=== PATIENT | male | born 1975 | race African-American/Black ===

== ENCOUNTER 2025-07-03 05:59 | Inpatient (IN) | payer MEDICAID, OTHER ==
[~2025-07-03] VITALS: Ht 170.2 cm; Wt 80.8 kg
[~2025-07-03 05:59] MED LIST: KEPP500 PO; METH-372 MT
[2025-07-03 06:17] VITALS: O2SAT 97
[2025-07-03] MEDS: MORPHINE SULFATE 4 MG/ML INJ (FOR IV/IM USE) IV ONE (06:54)
[2025-07-03] MEDS: ONDANSETRON HCL 4MG/2ML INJ IV ONE (06:54)
[2025-07-03] MEDS ORDERED: LEVOFLOXACIN 500MG PREMIX 100 ML IV ONE (07:30)
[2025-07-03 07:45] LABS: BASOPHILS % 0.2 % (0.0-2.0); EOSINOPHILS % 0.1 % (0.0-5.0); HEMATOCRIT. 48.9 % (42.0-52.0); HEMOGLOBIN. 16.3 g/dL (14.0-18.0); LYMPHOCYTES % 8.5 % (20.0-50.0); MEAN PLATELET VOLUME 9.3 fl (7.4-10.4); MONOCYTES % 10.1 % (2.0-8.0); NEUTROPHILS % 81.1 % (40.0-76.0); PLATELET 284 x1000/uL (130-400); RED BLOOD CELL COUNT 5.12 mill/uL (4.7-6.1); RED CELL DISTRIBUTION WIDTH 12.0 % (11.6-14.6)
[2025-07-03] MEDS: METRONIDAZOLE 500 MG PREMIX 100 ML IV ONE (07:54)
[2025-07-03 08:04] LABS: CREATININE 0.7 mg/dL (0.6-1.3); UREA NITROGEN BLOOD 12 mg/dL (9-23)
[2025-07-03 08:06] LABS: ASPARTATE AMINOTRANSFERASE 16 IU/L (<34); BILIRUBIN DIRECT 0.4 mg/dL (<=3.0); BILIRUBIN TOTAL 1.1 mg/dL (0.1-1.0); PROTEIN TOTAL 8.3 g/dL (6.0-8.3)
[2025-07-03 08:12] LABS: TROPONIN I HIGH SENSITIVITY 4 ng/L (3.0-53)
[2025-07-03] MEDS ORDERED: MORPHINE SULFATE 4 MG/ML INJ (FOR IV/IM USE) IV ONE (08:15)
[2025-07-03] MEDS ORDERED: SODIUM CHLORIDE 0.9% 1,000 ML IV ONE (08:15)
[2025-07-03] MEDS ORDERED: CLONIDINE 0.1MG TABLET PO PRN (08:45)
[2025-07-03] MEDS ORDERED: ONDANSETRON HCL 4MG/2ML INJ IV PRN (08:45)
[2025-07-03] MEDS ORDERED: IPRATROPIUM/ALBUTEROL 0.5-3(2.5)MG/3ML NEB HHN PRN (08:45)
[2025-07-03] MEDS ORDERED: LORAZEPAM 0.5MG TABLET PO PRN (08:45)
[2025-07-03] MEDS: METHIMAZOLE 5MG TABLET PO SCH (09:00)
[2025-07-03] MEDS: LEVETIRACETAM 500MG TABLET PO SCH (09:00)
[2025-07-03 09:30] VITALS: BP 118/81; PULSE 91; RESP 18; TEMP 36.3; O2SAT 98
[2025-07-03] MEDS ORDERED: METRONIDAZOLE 250 MG PREMIX 50 ML IV SCH (09:30)
[2025-07-03 09:42] LABS: TROPONIN I HIGH SENSITIVITY 5 ng/L (3.0-53)
[2025-07-03] MEDS ORDERED: NALOXONE HCL 0.4MG/ML VIAL IV PRN (09:45)
[2025-07-03] MEDS ORDERED: METRONIDAZOLE 500 MG PREMIX 100 ML IV SCH (10:00)
[2025-07-03 11:00] VITALS: BP 118/81; PULSE 91; RESP 18; TEMP 36.5848
[2025-07-03] MEDS: SODIUM CHLORIDE 0.9% 1,000 ML IV SCH (11:08)
[2025-07-03] MEDS: HYDROCODONE/ACETAMINOPHEN 5/325MG TABLET PO PRN (11:20)
[2025-07-03] MEDS: DOCUSATE SODIUM 250MG CAPSULE PO NR (11:23)
[2025-07-03] MEDS: ENOXAPARIN 30MG/0.3ML SYR SUBCUT SCH (11:24)
[2025-07-03] MEDS: PANTOPRAZOLE SODIUM 40 MG/VIAL IV SCH (11:26)
[2025-07-03 12:00] VITALS: BP 132/62; PULSE 91; RESP 18; TEMP 36.5; O2SAT 96
[2025-07-03] MEDS: PIPERACILLIN/TAZO 3.375G/50ML 50 ML IV SCH (13:18)
[2025-07-03 16:00] VITALS: BP 118/75; PULSE 91; RESP 18; TEMP 36.6; O2SAT 98
[2025-07-03] MEDS: METRONIDAZOLE 500 MG PREMIX 100 ML IV SCH (17:36)
[2025-07-03 20:00] VITALS: BP 130/84; PULSE 98; RESP 20; TEMP 36.3; O2SAT 97
[2025-07-03] MEDS ORDERED: IOHEXOL-300 100 ML BOTTLE ONE (23:35)
[2025-07-04] VITALS: BP 116/78; PULSE 87; RESP 21; TEMP 36.1; O2SAT 99
[2025-07-04 04:00] VITALS: BP 114/75; PULSE 89; RESP 20; TEMP 36.1; O2SAT 97
[2025-07-04] MEDS: MORPHINE SULFATE 4 MG/ML INJ (FOR IV/IM USE) IV PRN (07:06)
[2025-07-04 08:00] VITALS: BP 134/84; PULSE 108; RESP 19; TEMP 36.4; O2SAT 96
[2025-07-04 08:14] LABS: BASOPHILS % 0.2 % (0.0-2.0); EOSINOPHILS % 0.3 % (0.0-5.0); HEMATOCRIT. 45.7 % (42.0-52.0); HEMOGLOBIN. 15.2 g/dL (14.0-18.0); LYMPHOCYTES % 11.2 % (20.0-50.0); MEAN PLATELET VOLUME 9.2 fl (7.4-10.4); MONOCYTES % 11.8 % (2.0-8.0); NEUTROPHILS % 76.5 % (40.0-76.0); PLATELET 289 x1000/uL (130-400); RED BLOOD CELL COUNT 4.83 mill/uL (4.7-6.1); RED CELL DISTRIBUTION WIDTH 12.4 % (11.6-14.6)
[2025-07-04 08:25] LABS: CREATININE 0.6 mg/dL (0.6-1.3)
[2025-07-04 08:26] LABS: TRIGLYCERIDE 81 mg/dL (0-150); UREA NITROGEN BLOOD 12 mg/dL (9-23)
[2025-07-04 08:27] LABS: LDL CHOLESTEROL 97 mg/dL (5-100)
[2025-07-04 08:28] LABS: PHOSPHORUS 2.5 mg/dL (2.5-4.9)
[2025-07-04 08:32] LABS: T4 FREE 1.55 ng/dL (0.89-1.76)
[2025-07-04 12:00] VITALS: BP 131/84; PULSE 105; RESP 19; TEMP 36.8; O2SAT 100
[2025-07-04] MEDS ORDERED: NON FORMULARY MED XX SCH (12:15)
[2025-07-04] MEDS: IRON SUCROSE COMPLEX 100 MG/5 ML ML IV SCH (13:42)
[2025-07-04 16:00] VITALS: BP 128/85; PULSE 105; RESP 15; TEMP 36.8; O2SAT 97
[2025-07-04 20:00] VITALS: BP 133/90; PULSE 99; RESP 19; TEMP 36.3; O2SAT 97
[2025-07-05] VITALS: BP 132/83; PULSE 95; RESP 20; TEMP 36.9; O2SAT 99
[2025-07-05 04:00] VITALS: BP 125/80; PULSE 94; RESP 20; TEMP 36.9; O2SAT 95
[2025-07-05] MEDS: ACETAMINOPHEN 325MG TABLET PO PRN ×2 (05:49→21:23)
[2025-07-05 06:02] LABS: BASOPHILS % 0.1 % (0.0-2.0); EOSINOPHILS % 0.1 % (0.0-5.0); HEMATOCRIT. 44.3 % (42.0-52.0); HEMOGLOBIN. 14.9 g/dL (14.0-18.0); LYMPHOCYTES % 8.3 % (20.0-50.0); MEAN PLATELET VOLUME 8.7 fl (7.4-10.4); MONOCYTES % 11.9 % (2.0-8.0); NEUTROPHILS % 79.6 % (40.0-76.0); PLATELET 293 x1000/uL (130-400); RED BLOOD CELL COUNT 4.72 mill/uL (4.7-6.1); RED CELL DISTRIBUTION WIDTH 12.1 % (11.6-14.6)
[2025-07-05 06:17] LABS: CREATININE 0.6 mg/dL (0.6-1.3); UREA NITROGEN BLOOD 9 mg/dL (9-23)
[2025-07-05 06:19] LABS: PHOSPHORUS 2.4 mg/dL (2.5-4.9)
[2025-07-05 08:00] VITALS: BP 126/76; PULSE 97; RESP 18; TEMP 36.6; O2SAT 95
[2025-07-05 12:00] VITALS: BP 120/64; PULSE 62; RESP 18; TEMP 36; O2SAT 98
[2025-07-05 16:00] VITALS: BP 130/79; PULSE 98; RESP 18; TEMP 36.7; O2SAT 96
[2025-07-05 20:00] VITALS: BP 127/79; PULSE 96; RESP 18; TEMP 36.7; O2SAT 98
[2025-07-06] VITALS: BP 124/78; PULSE 83; RESP 20; TEMP 36.6; O2SAT 96
[2025-07-06 04:00] VITALS: BP 134/80; PULSE 90; RESP 18; TEMP 36.6; O2SAT 96
[2025-07-06 07:51] LABS: HEMATOCRIT. 42.6 % (42.0-52.0); HEMOGLOBIN. 14.4 g/dL (14.0-18.0); MEAN PLATELET VOLUME 8.9 fl (7.4-10.4); PLATELET 308 x1000/uL (130-400); RED BLOOD CELL COUNT 4.53 mill/uL (4.7-6.1); RED CELL DISTRIBUTION WIDTH 12.0 % (11.6-14.6)
[2025-07-06 08:00] VITALS: BP 133/84; PULSE 103; RESP 18; TEMP 36.5; O2SAT 96
[2025-07-06 08:10] LABS: CREATININE 0.6 mg/dL (0.6-1.3); UREA NITROGEN BLOOD 8 mg/dL (9-23)
[2025-07-06] MEDS ORDERED: KCL 20MEQ/100ML PREMIX 100 ML IV SCH (09:30)
[2025-07-06] MEDS: POTASSIUM CHLORIDE 20MEQ/PACKET PO NR (09:36)
[2025-07-06 12:00] VITALS: BP 135/82; PULSE 100; RESP 18; TEMP 36.4; O2SAT 96
[2025-07-06 12:32] LABS: CLARITY URINE CLEAR (CLEAR); COLOR URINE YELLOW (YELLOW); GLUCOSE URINE NEGATIVE (NEGATIVE); KETONES URINE 4+ (NEGATIVE); LEUKOCYTE ESTERASE URINE 1+ (NEGATIVE); NITRITE URINE NEGATIVE (NEGATIVE); OCCULT BLOOD URINE NEGATIVE (NEGATIVE); PH URINE 6.0 (4.5-8.0); PROTEIN URINE TRACE (NEGATIVE); SPECIFIC GRAVITY URINE 1.023 (1.005-1.030); UROBILINOGEN URINE 1.0 E.U./dL (0.2-1.0)
[2025-07-06 12:59] LABS: MUCUS URINE 1+ /lpf (NONE/TRACE); SQUAMOUS EPITHELIAL CELL URINE NONE SEEN /lpf (RARE/1+)
[2025-07-06 13:00] LABS: BACTERIA URINE TRACE
[2025-07-06 13:01] LABS: RBC URINE 0-2 /hpf (0-2)
[2025-07-06 13:24] LABS: *AMPHETAMINES SCREEN URINE NEGATIVE (NEGATIVE)
[2025-07-06 13:25] LABS: *BARBITURATES SCREEN URINE NEGATIVE (NEGATIVE); *BENZODIAZEPINES SCREEN URINE NEGATIVE (NEGATIVE); *COCAINE SCREEN URINE NEGATIVE (NEGATIVE); CANNABINOID URINE SCREEN PRESUMPTIVE POSITIVE (NEGATIVE); ECSTASY MDMA SCREEN URINE NEGATIVE (NEGATIVE); METHADONE URINE SCREEN NEGATIVE (NEGATIVE); OPIATES URINE SCREEN NEGATIVE (NEGATIVE); PHENCYCLIDINE URINE SCREEN NEGATIVE (NEGATIVE)
[2025-07-06] MEDS: POTASSIUM CHLORIDE 40 MEQ in DEXT 5% WATER 230 ML IV NR (13:26)
[2025-07-06 16:00] VITALS: BP 130/84; PULSE 108; RESP 19; TEMP 36.8; O2SAT 96
[2025-07-06 20:00] VITALS: BP 125/80; PULSE 102; RESP 20; TEMP 36.6; O2SAT 99
[2025-07-06 22:51] LABS: LYMPHOCYTES % MANUAL 7.0 % (20.0-50.0); MONOCYTES % MANUAL 12.0 % (2.0-8.0); NEUTROPHILS % MANUAL 81.0 % (45.0-75.0); PLATELET ESTIMATE NORMAL
[2025-07-07] VITALS: BP 115/85; PULSE 83; RESP 17; TEMP 36.6; O2SAT 97
[2025-07-07 04:00] VITALS: BP 130/80; PULSE 108; RESP 19; TEMP 36.8; O2SAT 99
[2025-07-07 08:00] VITALS: BP 135/91; PULSE 92; RESP 18; TEMP 36.6; O2SAT 96
[2025-07-07] MEDS: DEXT 5%/0.9% NACL 1,000 ML IV SCH (11:29)
[2025-07-07 12:00] VITALS: BP 127/87; PULSE 91; RESP 18; TEMP 36.7; O2SAT 100
[2025-07-07 16:00] VITALS: BP 128/84; PULSE 113; RESP 20; TEMP 36.9; O2SAT 97
[2025-07-07] MEDS: POTASSIUM CHLORIDE 20MEQ TABLET SR PO NR (17:24)
[2025-07-07 20:00] VITALS: BP 128/85; PULSE 82; RESP 18; TEMP 36.7; O2SAT 99
[2025-07-08] VITALS: BP 124/89; PULSE 86; RESP 19; TEMP 36.5; O2SAT 98
[2025-07-08 04:00] VITALS: BP 110/74; PULSE 75; RESP 18; TEMP 36.7; O2SAT 98
[2025-07-08 07:08] LABS: CREATININE 0.7 mg/dL (0.6-1.3); T4 FREE 1.54 ng/dL (0.89-1.76)
[2025-07-08 07:10] LABS: UREA NITROGEN BLOOD 7 mg/dL (9-23)
[2025-07-08 07:14] LABS: BASOPHILS % 0.3 % (0.0-2.0); EOSINOPHILS % 1.0 % (0.0-5.0); HEMATOCRIT. 39.1 % (42.0-52.0); HEMOGLOBIN. 13.3 g/dL (14.0-18.0); LYMPHOCYTES % 16.0 % (20.0-50.0); MEAN PLATELET VOLUME 8.5 fl (7.4-10.4); MONOCYTES % 14.6 % (2.0-8.0); NEUTROPHILS % 68.1 % (40.0-76.0); PLATELET 322 x1000/uL (130-400); RED BLOOD CELL COUNT 4.14 mill/uL (4.7-6.1); RED CELL DISTRIBUTION WIDTH 12.1 % (11.6-14.6)
[2025-07-08 08:00] VITALS: BP 109/76; PULSE 79; RESP 18; TEMP 36.2; O2SAT 98
[2025-07-08 12:00] VITALS: BP 127/93; PULSE 94; RESP 18; TEMP 36.2; O2SAT 99
[2025-07-08 16:00] VITALS: BP 137/85; PULSE 89; RESP 16; TEMP 36.1; O2SAT 98
[2025-07-08 20:00] VITALS: BP 103/65; PULSE 89; RESP 20; TEMP 36.2; O2SAT 98
[2025-07-09] VITALS: BP 124/76; PULSE 79; RESP 20; TEMP 36.2; O2SAT 100
[2025-07-09 04:00] VITALS: BP 105/67; PULSE 84; RESP 20; TEMP 36.6; O2SAT 99
[2025-07-09 08:00] VITALS: BP 135/89; PULSE 86; RESP 17; TEMP 36.7; O2SAT 99
[2025-07-09 08:11] LABS: BASOPHILS % 0.4 % (0.0-2.0); EOSINOPHILS % 0.8 % (0.0-5.0); HEMATOCRIT. 39.3 % (42.0-52.0); HEMOGLOBIN. 13.3 g/dL (14.0-18.0); LYMPHOCYTES % 16.8 % (20.0-50.0); MEAN PLATELET VOLUME 8.3 fl (7.4-10.4); MONOCYTES % 12.0 % (2.0-8.0); NEUTROPHILS % 70.0 % (40.0-76.0); PLATELET 336 x1000/uL (130-400); RED BLOOD CELL COUNT 4.17 mill/uL (4.7-6.1); RED CELL DISTRIBUTION WIDTH 12.3 % (11.6-14.6)
[2025-07-09 08:18] LABS: CREATININE 0.5 mg/dL (0.6-1.3)
[2025-07-09 08:19] LABS: UREA NITROGEN BLOOD < 5 mg/dL (9-23)
[2025-07-09 12:00] VITALS: BP 124/87; PULSE 113; RESP 15; TEMP 36.3; O2SAT 96
[2025-07-09] MEDS ORDERED: PROT40 MT (15:19)
[2025-07-09] MEDS ORDERED: LEVO750T68 MT (15:19)
[2025-07-09] MEDS ORDERED: TOPUD PO (15:19)
[2025-07-09] MEDS ORDERED: METR-167 MT (15:19)
[2025-07-09 15:26] VITALS: BP 126/72; PULSE 80; RESP 18; TEMP 96.8
== END 2025-07-09 15:58 | disposition home or self-care (01) | DRG 501 ==
LOC: ER 05:59 → 6WST 08:14 → EDBEDREQTM 08:37 → EDBEDREQ 08:37
PROVIDERS: ADMIT Internal Medicine; ATTEND Internal Medicine
DX: N44.04 Torsion of appendix epididymis (principal); K57.21 Diverticulitis of large intestine with perforation and abscess with bleeding; R65.10 Systemic inflammatory response syndrome (SIRS) of non-infectious origin without acute organ dysfunction; E03.9 Hypothyroidism, unspecified; I10 Essential (primary) hypertension; E05.90 Thyrotoxicosis, unspecified without thyrotoxic crisis or storm; G40.909 Epilepsy, unspecified, not intractable, without status epilepticus; E78.00 Pure hypercholesterolemia, unspecified; N50.3 Cyst of epididymis; K59.00 Constipation, unspecified; K52.9 Noninfective gastroenteritis and colitis, unspecified; F17.210 Nicotine dependence, cigarettes, uncomplicated; R33.9 Retention of urine, unspecified; Z79.899 Other long term (current) drug therapy
CPT/HCPCS: 36415; 74018; 74176; 74177; 76870; 80048; 80061; 80076; 80305; 81003; 82728; 83540; 83550; 83735; 84100; 84145; 84153; 84439; 84443; 84484; 85025; 93005; 93970; 93976; 96365; 96375; 99285; A4606; J1650; J1956; J2270; J2405; J2470; J2543; J3480; J3490; J7030; J7042; J7060; Q9967